=== PATIENT | male | born 1975 | race Hispanic/Latino ===

== ENCOUNTER 2017-11-29 13:18 | Emergency (ER) | payer OTHER ==
[2017-11-29 13:18] VITALS: BMI 34.8
[2017-11-29 13:25] VITALS: RESP 18
[2017-11-29] MEDS ORDERED: Sodium Chloride 0.9% 1,000 ML IV STA (13:40)
--- NOTE | 2017-11-29 13:44 | ED PDOC ---
Arrival/HPI - General Chief Complaint: Abdominal Pain Time Seen by Provider: 11/29/17 13:30 Historian: Patient - History of Present Illness Time/Duration: Other (2 days) Symptom Onset: Gradual Symptom Course: Unchanged Quality: Aching Severity Level: Mild Activities at Onset: Rest Associated Symptoms (Text): 11/29/17 13:42 Patient complains of a 2 day history of mild lower abdominal pain with some nausea. No vomiting. Pain is better after a bowel movement. No genitourinary symptoms. No radiation. No low back pain. No fever or chills. He has never experienced this previously. No injury or trauma. Past Medical History - Infectious Disease Hx of Infectious Diseases: None - Tetanus Immunization Tetanus Immunization: Unknown - Cardiac Hx Hypertension: Yes - Pulmonary Hx Asthma: Yes - Neurological Hx Neurological Disorder: No - HEENT Hx HEENT Disorder: No - Renal Hx Renal Disorder: No - Endocrine/Metabolic Hx Diabetes Mellitus Type 2: Yes - Hematological/Oncological Hx Blood Disorders: No - Integumentary Hx Dermatological Disorder: No - Musculoskeletal/Rheumatological Other/Comment: FX RIBS - Gastrointestinal Hx Gastroesophageal Reflux: Yes - Genitourinary/Gynecological Hx Genitourinary Disorders: No - Psychiatric Hx Psychophysiologic Disorder: No Hx Depression: No Hx Emotional Abuse: No Hx Physical Abuse: No Hx Substance Use: No - Surgical History Hx Cholecystectomy: Yes Other/Comment: Hernia sx - Anesthesia Hx Anesthesia: Yes - Suicidal Assessment Feels Threatened In Home Enviroment: No Family/Social History - Physician Review Nursing Documentation Reviewed: Yes Family/Social History: Unknown Family HX Smoking Status: Never Smoked Hx Alcohol Use: Yes Frequency of alcohol use: Socially Hx Substance Use: No Allergies/Home Meds Allergies/Adverse Reactions: Allergies No Known Allergies Allergy (Verified 11/29/17 13:25) Home Medications: Home Meds Medication Instructions Recorded Confirmed Albuterol/Ipratropium [Combivent] 1 alcira IH PRN PRN 12/05/12 11/29/17 Metformin HCl [Metformin] 1,000 mg PO BID 12/05/12 11/29/17 Glyburide [Glyburide] 5 mg PO BID 03/09/15 11/29/17 Empagliflozin [Jardiance] 25 mg PO DAILY 11/29/17 11/29/17 Esomeprazole Magnesium [Nexium] 20 mg PO BID 11/29/17 11/29/17 Magnesium Oxide [Magnesium] 400 mg PO DAILY 11/29/17 11/29/17 Simvastatin [Simvastatin] 10 mg PO HS 11/29/17 11/29/17 amLODIPine [Norvasc] 10 mg PO DAILY 11/29/17 11/29/17 hydrALAZINE [Apresoline] 25 mg PO BID 11/29/17 11/29/17 hydroCHLOROthiazide [Microzide] 12.5 mg PO DAILY 11/29/17 11/29/17 Review of Systems - Physician Review All systems were reviewed & negative as marked: Yes - Review of Systems Constitutional: absent: Fatigue, Fevers Respiratory: absent: SOB, Cough Cardiovascular: absent: Chest Pain, Palpitations, Syncope Gastrointestinal: Abdominal Pain, Nausea, Anorexia. absent: Constipation, Diarrhea, Vomiting Genitourinary Male: absent: Dysuria, Frequency, Hematuria Neurological: absent: Headache, Dizziness Physical Exam Vital Signs Temp Pulse Resp BP Pulse Ox 11/29/17 14:50 79 18 148/86 98 11/29/17 13:22 98.4 F 88 18 154/90 H 98 Temperature: Afebrile Blood Pressure: Hypertensive Pulse: Regular Respiratory Rate: Normal Appearance: Positive for: Well-Appearing, Non-Toxic, Uncomfortable Pain Distress: Mild Mental Status: Positive for: Alert and Oriented X 3 - Systems Exam Head: Present: Atraumatic, Normocephalic Pupils: Present: PERRL Extroacular Muscles: Present: EOMI Conjunctiva: Present: Normal Mouth: Present: Moist Mucous Membranes Pharnyx: No: ERYTHEMA, EXUDATE, TONSILS ENLARGED Neck: Present: Normal Range of Motion Respiratory/Chest: Present: Clear to Auscultation, Good Air Exchange. No: Respiratory Distress, Accessory Muscle Use Cardiovascular: Present: Regular Rate and Rhythm, Normal S1, S2. No: Murmurs Abdomen: Present: Tenderness (Mild suprapubic tenderness with no guarding and no rebound), Normal Bowel Sounds. No: Distention, Peritoneal Signs, Rebound, Guarding Upper Extremity: Present: Normal Inspection. No: Cyanosis, Edema Lower Extremity: Present: Normal Inspection. No: Edema Neurological: Present: GCS=15, CN II-XII Intact, Speech Normal Skin: Present: Warm, Dry, Normal Color. No: Rashes Psychiatric: Present: Alert, Oriented x 3, Normal Insight, Normal Concentration Medical Decision Making ED Course and Treatment: 11/29/17 15:34 CT scan of the abdomen and pelvis is read by the radiologist shows no acute findings. There is colitis throughout the entire colon. This is similar to previous. His symptoms are markedly improved post treatment. He will be discharged home to follow-up with PMD and gastroenterology. Follow-up in the ER as needed. Will be given prescriptions for Cipro and Flagyl. Blood sugar is elevated and will need to follow-up with PMD for possible medication adjustment. - Lab Interpretations Lab Results: 11/29/17 14:01 11/29/17 14:01 Lab Results 11/29/17 14:01: Sodium 141, Potassium 3.8, Chloride 102, Carbon Dioxide 23, Anion Gap 19, BUN 14, Creatinine 0.9, Est GFR ( Amer) > 60, Est GFR (Non- Af Amer) > 60, Random Glucose 223 H, Calcium 9.1, Magnesium 1.6 L, Total Bilirubin 0.7, AST 32, ALT 65 H, Alkaline Phosphatase 68, Total Protein 7.3, Albumin 4.3, Globulin 3.0, Albumin/Globulin Ratio 1.4, Lipase 75 11/29/17 14:01: Urine Color Yellow, Urine Appearance Clear, Urine pH 6.0, Ur Specific [place] 1.020, Urine Protein 30 H, Urine Glucose (UA) >=1000, Urine Ketones Trace H, Urine Blood Negative, Urine Nitrate Negative, Urine Bilirubin Negative, Urine Urobilinogen 0.2, Ur Leukocyte Esterase Negative, Urine RBC Negative, Urine WBC 0 - 2, Ur Epithelial Cells None 11/29/17 14:01: WBC 9.5, RBC 5.40, Hgb 16.4, Hct 46.2, MCV 85.6, MCH 30.4, MCHC 35.5, RDW 13.2, Plt Count 219, MPV 11.3 H, Gran % 64.9, Lymph % (Auto) 22.2, Baker % (Auto) 9.8 H, Eos % (Auto) 2.7, Baso % (Auto) 0.4, Gran # 6.17, Lymph # ( Auto) 2.1, Baker # (Auto) 0.9 H, Eos # (Auto) 0.3, Baso # (Auto) 0.04 - RAD Interpretation Radiology Orders: 11/29/17 13:40 ABD & PELVIS W/O PO OR IV CONT [CT] Stat - Medication Orders Current Medication Orders: Discontinued Medications Sodium Chloride (Sodium Chloride 0.9%) 1,000 mls @ 1,000 mls/hr IV .Q1H STA Stop: 11/29/17 14:39 Last Admin: 11/29/17 13:59 Dose: 1,000 mls/hr eMAR Start Stop Document 11/29/17 13:59 SF (Rec: 11/29/17 14:00 [email or web address] Intravenous Solution Start Date 11/29/17 Start Time 14:00 End Date 11/29/17 End time 15:00 Total Infusion Time 60 Ketorolac Tromethamine (Toradol) 15 mg IVP STAT STA Stop: 11/29/17 13:41 Last Admin: 11/29/17 14:02 Dose: 15 mg MAR Pain Assessment Document 11/29/17 14:02 SF (Rec: 11/29/17 14:02 [email or web address] Pain Reassessment Is this a pain reassessment? Yes Sleep Is patient sleeping during reassessment? No Presence of Pain Presence of Pain Yes IVP Administration Document 11/29/17 14:02 SF (Rec: 11/29/17 14:02 [email or web address]) Charges for Administration # of IVP Administrations 1 Ondansetron HCl (Zofran Inj) 4 mg IVP STAT STA Stop: 11/29/17 13:41 Last Admin: 11/29/17 14:01 Dose: 4 mg IVP Administration Document 11/29/17 14:01 SF (Rec: 11/29/17 14:02 [email or web address]) Charges for Administration # of IVP Administrations 1 Pantoprazole Sodium (Protonix Inj) 40 mg IVP STAT STA Stop: 11/29/17 13:41 Last Admin: 11/29/17 14:02 Dose: 40 mg IVP Administration Document 11/29/17 14:02 SF (Rec: 11/29/17 14:02 [email or web address]) Charges for Administration # of IVP Administrations 1 Disposition/Present on Arrival - Present on Arrival Any Indicators Present on Arrival: No History of DVT/PE: No History of Uncontrolled Diabetes: Yes Urinary Catheter: No History of Decub. Ulcer: No History Surgical Site Infection Following: None - Disposition Have Diagnosis and Disposition been Completed?: Yes Diagnosis: Colitis, Hyperglycemia due to type 2 diabetes mellitus, Abdominal pain Disposition: HOME/ ROUTINE Disposition Time: 15:36 Patient Plan: Discharge Condition: IMPROVED Discharge Instructions (ExitCare): Type 2 Diabetes, Hyperglycemia, Adult, Acute Abdomen (Belly Pain), Adult (DC), Inflammatory Bowel Disease (DC) Prescriptions: Ciprofloxacin HCl [Cipro] 500 mg PO BID #20 tab Metronidazole [Flagyl] 500 mg PO Q6 #40 tab Pantoprazole Sodium [Protonix] 40 mg PO DAILY #20 ect Referrals: Shiv King MD [Primary Care Provider] - Follow up with primary Jim Gerard MD [Medical Doctor] - Follow up with primary Forms: [employer] (Icelandic)
[2017-11-29 14:14] LABS: URINE BILIRUBIN NEGATIVE (NEGATIVE); URINE BLOOD NEGATIVE (NEGATIVE); URINE GLUCOSE (UA) >=1000 mg/dL (NEGATIVE); URINE LEUKOCYTE ESTERASE NEGATIVE Leu/uL (NEGATIVE); URINE PROTEIN 30 mg/dL (<30 mg/dL); URINE UROBILINOGEN 0.2 E.U./dL (<1 E.U./dL)
[2017-11-29 14:15] LABS: URINE APPEARANCE CLEAR (CLEAR); URINE COLOR YELLOW (YELLOW)
[2017-11-29 14:21] LABS: ALB/GLOB RATIO 1.4 (1.1-1.8); ALBUMIN 4.3 g/dL (3.0-4.8); ALT/SGPT 65 U/L (7-56); AST/SGOT 32 U/L (17-59); BLOOD UREA NITROGEN 14 mg/dL (7-21); CALCIUM 9.1 mg/dL (8.4-10.5); GFR AFRICAN-AMERICAN > 60; GFR NON-AFRICAN AMERICAN > 60; LIPASE 75 U/L (23-300)
[2017-11-29 14:27] LABS: BASO # 0.04 K/mm3 (0.0-2.0); BASO % 0.4 % (0.0-3.0); EOS # 0.3 (0.0-0.7); EOS % 2.7 % (1.5-5.0); GRAN # 6.17 (1.4-6.5); GRAN % 64.9 % (50.0-68.0); HEMOGLOBIN 16.4 g/dL (14.0-18.0); LYMPH # 2.1 (1.2-3.4); LYMPH % 22.2 % (22.0-35.0); MEAN CELL VOLUME 85.6 fl (80.0-105.0); MEAN CORPUSCULAR HEMOGLOBIN 30.4 pg (25.0-35.0); MEAN CORPUSCULAR HGB CONC 35.5 g/dl (31.0-37.0); MEAN PLATELET VOLUME 11.3 fl (7.0-11.0); MONO # 0.9 (0.1-0.6); MONO % 9.8 % (1.0-6.0); RBC 5.4 10^6/uL (3.5-6.1); RED CELL DISTRIBUTION WIDTH 13.2 % (11.5-14.5); WHITE BLOOD COUNT 9.5 10^3/ul (4.5-11.0)
[2017-11-29 15:03] LABS: URINE RBC NEGATIVE /hpf (0-2); URINE WBC 0 - 2 /hpf (0-6)
--- NOTE | 2017-11-29 15:28 | CT ---
PROCEDURE: CT abdomen pelvis 11/29/2017 HISTORY: Lower pain COMPARISON: Correlation made with abdominal ultrasound 10/08/2012 TECHNIQUE: Contiguous axial images of the abdomen and p pelvis performed without oral or intravenous contrast material. Additional 2D sagittal and coronal reformats generated. Radiation dose: Total exam DLP = 1185.87 mGy-cm. This CT exam was performed using one or more of the following dose reduction techniques: Automated exposure control, adjustment of the mA and/or kV according to patient size, and/or use of iterative reconstruction technique. . FINDINGS: LOWER THORAX: Minor passive atelectasis both posterior lower lung zones. Tiny bibasilar bleb changes are also present. Small hiatal hernia. Suspect trace pericardial effusion. LIVER: Liver is enlarged measuring just over 21 cm in CC dimension. No obvious hepatic mass or collection. No gross intrahepatic biliary ductal dilatation. GALLBLADDER AND BILE DUCTS: Cholecystectomy. PANCREAS: Pancreas is slightly atrophic and fatty replaced. SPLEEN: Spleen is enlarged measuring over 16 cm in AP dimension. ADRENALS: Unremarkable. KIDNEYS AND URETERS: Kidneys demonstrate relatively symmetric size. No evidence of nephrolithiasis or hydronephrosis. BLADDER: Bladder incompletely distended which in part accounts for thick-walled appearance. Muscular hypertrophy may contribute. REPRODUCTIVE: Unremarkable. APPENDIX: Normal appendix best seen on axial image number [id number]. No periappendiceal inflammatory changes. BOWEL: Evaluation of the bowel is limited due to the lack of oral contrast material. Stomach is collapsed which in part accounts thick-walled appearance. Visualized loops of small bowel exhibit normal contour and caliber. No evidence of acute mechanical small bowel obstruction The colon is also collapsed. There appears to be on diffuse mural wall thickening involving cecum at ascending transverse and good portion of the descending colon consistent with nonspecific colitis. Clinical correlation recommended. . Additionally, there also appear to be a few scattered colonic diverticula along the sigmoid colon. PERITONEUM: Unremarkable. No fluid collection. No free air. Small fat containing umbilical hernia. There is a small fat containing right inguinal hernia. LYMPH NODES: Multiple small nonspecific mesenteric and retroperitoneal lymph nodes are present ; rule out mesenteric adenitis. . VASCULATURE: Unremarkable. No aortic aneurysm. BONES: There is old healed right posterior 9th rib fracture and incompletely fused right posterior 8th rib fracture. Minor multilevel degenerative spondylosis of the lower thoracic and lumbar spine. OTHER FINDINGS: None. IMPRESSION: Findings consistent with colitis. . There are few scattered colonic diverticula along the sigmoid colon the felt to be incidental to the at aforementioned findings throughout the remaining colon. . Hepatosplenomegaly. Multiple small nonspecific mesenteric and retroperitoneal lymph nodes ; rule out mesenteric adenitis. Cholecystectomy. See above discussion for additional incidental findings.
[2017-11-29 15:54] VITALS: BP 141/79; PULSE 74; TEMP 98; O2SAT 100
== END 2017-11-29 16:00 | disposition home or self-care (01) ==
LOC: ED 13:18
DX: K52.9 Noninfective gastroenteritis and colitis, unspecified (principal); E11.65 Type 2 diabetes mellitus with hyperglycemia; R10.9 Unspecified abdominal pain; I10 Essential (primary) hypertension
CPT/HCPCS: 74176; 80053; 81001; 83690; 83735; 85025; 96361; 96374; 96375; 99284; C9113; J1885; J2405; J7040

== ENCOUNTER 2018-07-24 12:03 | Emergency (ER) | payer OTHER ==
[2018-07-24 12:03] VITALS: BMI 34.8
[2018-07-24 12:34] VITALS: RESP 18; TEMP 98.6
--- NOTE | 2018-07-24 13:06 | ED PDOC ---
Arrival/HPI - General Chief Complaint: Shortness Of Breath Time Seen by Provider: 07/24/18 12:37 Historian: Patient, Spouse - History of Present Illness Narrative History of Present Illness (Text): 07/24/18 13:04 43 year old male, with past medical history of hiatal hernia and esophageal issues w/ chronic cough, presents to the Emergency department for evaluation of intermittent back pain since 2 weeks. Patient states onset of symptoms before Ela, when he took a deep breath and experienced a sudden surge of back pain bilaterally. Patient states visiting his PMD with the presented symptoms and was informed of a "mass in the back" but is unable to elaborate further. Patient informs associated lightheadedness, irregular bowel movements and an episode of hemoptosis, prompting him to present to the ED for medical eval uation. Patient states similar episode in the past when he sustained a fracture to his rib secondary to cough. Patient denies any other associated somatic complaints. Patient denies any fevers, chills, headache, chest pain, shortness of breath, dyspnea on exertion, abdominal pain, nausea, vomiting, diarrhea, neck pain, or any other complaints. Time/Duration: > week (2 weeks) Symptom Onset: Gradual Symptom Course: Unchanged Activities at Onset: Light Context: Home Past Medical History - Provider Review Nursing Documentation Reviewed: Yes - Infectious Disease Hx of Infectious Diseases: None - Tetanus Immunization Tetanus Immunization: Unknown - Cardiac Hx Hypertension: Yes - Pulmonary Hx Asthma: Yes - Neurological Hx Neurological Disorder: No - HEENT Hx HEENT Disorder: No - Renal Hx Renal Disorder: No - Endocrine/Metabolic Hx Diabetes Mellitus Type 2: Yes - Hematological/Oncological Hx Blood Disorders: No - Integumentary Hx Dermatological Disorder: No - Musculoskeletal/Rheumatological Other/Comment: FX RIBS - Gastrointestinal Hx Gastroesophageal Reflux: Yes - Genitourinary/Gynecological Hx Genitourinary Disorders: No - Psychiatric Hx Psychophysiologic Disorder: No Hx Depression: No Hx Emotional Abuse: No Hx Physical Abuse: No Hx Substance Use: No - Surgical History Hx Cholecystectomy: Yes Other/Comment: Hernia sx - Anesthesia Hx Anesthesia: Yes Hx Anesthesia Reactions: No Hx Malignant Hyperthermia: No - Suicidal Assessment Feels Threatened In Home Enviroment: No Family/Social History - Physician Review Nursing Documentation Reviewed: Yes Family/Social History: Unknown Family HX Smoking Status: Never Smoked Hx Alcohol Use: Yes Hx Substance Use: No Allergies/Home Meds Allergies/Adverse Reactions: Allergies No Known Allergies Allergy (Verified 11/29/17 13:25) Home Medications: Home Meds Medication Instructions Recorded Confirmed Albuterol/Ipratropium [Combivent] 1 alcira IH PRN PRN 12/05/12 11/29/17 Metformin HCl [Metformin] 1,000 mg PO BID 12/05/12 11/29/17 Glyburide 5 mg PO BID 03/09/15 11/29/17 Empagliflozin [Jardiance] 25 mg PO DAILY 11/29/17 11/29/17 Esomeprazole Magnesium [Nexium] 20 mg PO BID 11/29/17 11/29/17 Magnesium Oxide [Magnesium] 400 mg PO DAILY 11/29/17 11/29/17 RX: amLODIPine [Norvasc] 10 mg PO DAILY 11/29/17 11/29/17 RX: hydrALAZINE [Apresoline] 25 mg PO BID 11/29/17 11/29/17 RX: hydroCHLOROthiazide [Microzide] 12.5 mg PO DAILY 11/29/17 11/29/17 Simvastatin 10 mg PO HS 11/29/17 11/29/17 Review of Systems - Physician Review All systems were reviewed & negative as marked: Yes - Review of Systems Constitutional: absent: Fevers Respiratory: Cough. absent: SOB Cardiovascular: absent: Chest Pain, ROSARIO Gastrointestinal: absent: Abdominal Pain, Diarrhea, Nausea, Vomiting Genitourinary Male: absent: Dysuria, Urinary Output Changes Musculoskeletal: Back Pain. absent: Neck Pain Skin: absent: Rash Neurological: absent: Headache, Dizziness Physical Exam - Physical Exam Narrative Physical Exam (Text): 07/24/18 13:21 Gen: VS reviewed, alert, well developed, well nourished, nontoxic, mild distress. ENT: normal pharynx. Eye: EOMI, PERRL. Neck: no JVD, supple, no adenopathy. CV: regular rate, regular rhythm, no rubs, no murmur, no gallops, S1, S2, pulses equal and strong. Pulm: no distress, clear to auscultation, no wheeze, no rhonchi, breath sounds equal, no rales. Abd: soft, nontender, no guarding, no rebound, no rigidity, normal bowel sounds. Ext: no edema. Mild to moderate right sided left lower scapular area tenderness reproducible with internal rotation across the body and relieved with external rotation above the body Skin: good color, no rash, no cyanosis. Psych: responds appropriately to questions, normal affect. Neuro: oriented x 3, CN2-12 intact grossly, motor intact, sensation intact. Vital Signs Reviewed: Yes Vital Signs Temp Pulse Resp BP Pulse Ox 07/24/18 12:03 98.6 F 84 18 156/89 H 95 Temperature: Afebrile Blood Pressure: Hypertensive Pulse: Regular Respiratory Rate: Normal Appearance: Positive for: Well-Appearing, Non-Toxic, Comfortable Pain Distress: None Mental Status: Positive for: Alert and Oriented X 3 Medical Decision Making ED Course and Treatment: 07/24/18 13:20 Impression: 43 year old male presents to the Emergency department for medical evaluation of back pain. Plan: -- CTA -- EKG -- Labs -- Lidoderm -- Urinalysis -- Reassess and disposition Prior Visits: Notes and results from previous visits were reviewed. Progress Notes: 07/24/18 16:04 patient seen for multiple nonspecific complaints. with the patient's symptoms above and below the diaphragm, CT was done to rule out aortic dissection. clinically, the patient had upper right sided back pain which was reproducible to palpation and active ROM of the scapula. ddx including but not limited to thoracic HNP but further evaluation deferred at this time as emergent MR imaging not indicated. patient remained stable throughout Emergency department course, patient understands and agreeable to dc and follow up [facility] pcp. patient's pain has sig improved with lidoerm patch. - RAD Interpretation Narrative RAD Interpretations (Text): 07/24/18 16:11 Procedure: Angiography CT Impression: No evidence of aortic dissection or pulmonary embolus Dictator: Damien Rahman Search Engine Marketing Manager: Radiologist - Scribe Statement The provider has reviewed the documentation as recorded by the Scribe Miriam Martinez. All medical record entries made by the Scribe were at my direction and personally dictated by me. I have reviewed the chart and agree that the record accurately reflects my personal performance of the history, physical exam, medical decision making, and the department course for this patient. I have also personally directed, reviewed, and agree with the discharge instructions and disposition. Disposition/Present on Arrival - Present on Arrival Any Indicators Present on Arrival: No History of DVT/PE: No History of Uncontrolled Diabetes: Yes Urinary Catheter: No History of Decub. Ulcer: No History Surgical Site Infection Following: None - Disposition Have Diagnosis and Disposition been Completed?: Yes Diagnosis: Musculoskeletal back pain Disposition: HOME/ ROUTINE Disposition Time: 16:07 Patient Plan: Discharge Condition: STABLE Discharge Instructions (ExitCare): Upper Back Pain Additional Instructions: return for any new or worsening symptoms. follow up with your doctor as soon as possible. Prescriptions: RX: Ibuprofen [Motrin Tab] 600 mg PO QID #42 tab Lidocaine 5% [Lidoderm] 1 ea TD Q12H #14 patch Referrals: Shiv King MD [Primary Care Provider] - Follow up with primary Forms: [employer] (Serbian)
[2018-07-24] MEDS ORDERED: Lidocaine 5% Patch TD STA (13:22)
[2018-07-24 13:35] LABS: BASO # 0.05 K/mm3 (0.0-2.0); BASO % 0.5 % (0.0-3.0); EOS # 0.3 (0.0-0.7); EOS % 2.6 % (1.5-5.0); GRAN # 5.88 (1.4-6.5); HEMOGLOBIN 16.4 g/dL (14.0-18.0); LYMPH # 2.9 (1.2-3.4); LYMPH % 29.2 % (22.0-35.0); MEAN CELL VOLUME 86.5 fl (80.0-105.0); MEAN CORPUSCULAR HEMOGLOBIN 30.3 pg (25.0-35.0); MEAN PLATELET VOLUME 11.2 fl (7.0-11.0); MONO # 0.8 (0.1-0.6); MONO % 7.7 % (1.0-6.0); RBC 5.41 10^6/uL (3.5-6.1); RED CELL DISTRIBUTION WIDTH 13.3 % (11.5-14.5); WHITE BLOOD COUNT 9.8 10^3/uL (4.5-11.0)
[2018-07-24 13:42] LABS: INR 0.93; PARTIAL THROMBOPLASTIN TIME 29.1 Seconds (25.1-36.5); PROTHROMBIN TIME 10.7 SECONDS (9.4-12.5)
[2018-07-24 13:44] LABS: ALB/GLOB RATIO 1.4 (1.1-1.8); ALBUMIN 4.5 g/dL (3.0-4.8); ALT/SGPT 79 U/L (7-56); AST/SGOT 43 U/L (17-59); BLOOD UREA NITROGEN 17 mg/dL (7-21); CALCIUM 9.6 mg/dL (8.4-10.5); GFR NON-AFRICAN AMERICAN > 60; LIPASE 83 U/L (23-300)
[2018-07-24 14:19] LABS: TROPONIN I < 0.01 ng/mL
[2018-07-24 15:03] LABS: URINE BILIRUBIN NEGATIVE (NEGATIVE); URINE BLOOD NEGATIVE (NEGATIVE); URINE GLUCOSE (UA) >=1000 mg/dL (NEGATIVE); URINE LEUKOCYTE ESTERASE NEGATIVE Leu/uL (NEGATIVE); URINE PROTEIN NEGATIVE mg/dL (<30 mg/dL); URINE UROBILINOGEN 0.2 E.U./dL (<1 E.U./dL)
[2018-07-24] MEDS ORDERED: Sodium Chloride 0.9% 500 ML IV STA (15:03)
[2018-07-24 15:07] LABS: URINE APPEARANCE CLEAR (CLEAR); URINE COLOR YELLOW (YELLOW)
--- NOTE | 2018-07-24 15:14 | CARD ---
APPROVED REPORT Date of service: 07/24/2018 EKG Measurement Heart [id number] <Conclusion> Normal sinus rhythm Left anterior fascicular block
--- NOTE | 2018-07-24 15:25 | CT ---
Date of service: 07/24/2018 PROCEDURE: CT Chest with and without contrast HISTORY: dissection protocol COMPARISON: None available. TECHNIQUE: Contiguous axial images were obtained through the chest with intravenous contrast enhancement. Sagittal and coronal reconstructions were performed. IV contrast: 147 cc of Omni 350 Radiation dose: Total exam DLP = 1375.42 mGy-cm. This CT exam was performed using one or more of the following dose reduction techniques: Automated exposure control, adjustment of the mA and/or kV according to patient size, and/or use of iterative reconstruction technique. FINDINGS: LUNGS: Clear lungs. Visualized airway clear. MEDIASTINUM: Unremarkable thoracic aorta. No aneurysm or dissection. Normal sized heart. Main pulmonary artery unremarkable. No vascular congestion. No lymphadenopathy. No evidence of pulmonary embolus No aortic atherosclerotic calcification or mural plaque present. PLEURA: No pleural fluid. No pneumothorax. BONES: There are several old rib fractures on the right side posteriorly. UPPER ABDOMEN: Gallbladder removed OTHER FINDINGS: None. IMPRESSION: No evidence of aortic dissection or pulmonary embolus
[2018-07-24 16:27] VITALS: BP 132/88; PULSE 72; O2SAT 98
== END 2018-07-24 16:28 | disposition home or self-care (01) ==
LOC: ED 12:03
DX: M54.6 Pain in thoracic spine (principal); I10 Essential (primary) hypertension; E11.9 Type 2 diabetes mellitus without complications
CPT/HCPCS: 71275; 74175; 80053; 81003; 83690; 84484; 85025; 85610; 85730; 93005; 99284; J7040; Q9967